=== PATIENT | female | born 2000 | race African-American/Black ===

== ENCOUNTER 2018-12-12 14:40 | Emergency (ER) | payer OTHER ==
[~2018-12-12] VITALS: Ht 165.1 cm; Wt 55.3 kg
[2018-12-12 14:45] VITALS: BP 113/50
--- NOTE | 2018-12-12 15:07 | PHYS DOC ---
Past History Past Medical History: No Pertinent History Past Surgical History: No Surgical History Alcohol Use: None Drug Use: None Adult General Chief Complaint Chief Complaint: SYNCOPE HPI HPI 18-year-old female presents via EMS after syncopal episode. The patient is a college student. She donated blood today and walked briskly to class. Just as she had to class building, she began to feel dizzy and lightheaded. She sat down and then had a syncopal episode. She was told that she was unconscious for about a minute. She had no loss of bowel or bladder. When she woke up she has a hea dache. She also had a right field visual deficits. This persisted for a couple minutes but has resolved at this time. She continues to have a headache and a mild lightheaded feeling. She denies fever or chills. She did eat breakfast today. She has not had much water to drink today. She has never donated blood until today. She has a history of at least 2 previous syncopal episodes. Any workups done at that time were negative. Review of Systems Review of Systems Constitutional: Denies fever or chills [] Eyes: Denies current change in visual acuity, redness, or eye pain [] HENT: Denies nasal congestion or sore throat [] Respiratory: Denies cough or shortness of breath [] Cardiovascular: No additional information not addressed in HPI [] GI: Denies abdominal pain, nausea, vomiting, bloody stools or diarrhea [] : Denies dysuria or hematuria [] Musculoskeletal: Denies back pain or joint pain [] Integument: Denies rash or skin lesions [] Neurologic: Headache, dizziness. Denies focal weakness or sensory changes [] Endocrine: Denies polyuria or polydipsia [] All other systems were reviewed and found to be within normal limits, except as documented in this note. Allergies Allergies Allergies Coded Allergies Type Severity Reaction Last Updated Verified No Known Drug Allergies 12/12/18 No Physical Exam Physical Exam Constitutional: Well developed, well nourished, no acute distress, non-toxic appearance. [] HENT: Normocephalic, atraumatic, bilateral external ears normal, oropharynx moist, no oral exudates, nose normal. [] Eyes: PERRLA, EOMI, conjunctiva normal, no discharge. [] Neck: Normal range of motion, no tenderness, supple, no stridor. [] Cardiovascular:Heart rate regular rhythm, no murmur [] Lungs & Thorax: Bilateral breath sounds clear to auscultation [] Abdomen: Bowel sounds normal, soft, no tenderness, no masses, no pulsatile masses. [] Skin: Warm, dry, no erythema, no rash. [] Back: No tenderness, no CVA tenderness. [] Extremities: No tenderness, no cyanosis, no clubbing, ROM intact, no edema. [] Neurologic: Alert and oriented X 3, normal motor function, normal sensory function, no focal deficits noted. [] Psychologic: Affect normal, judgement normal, mood normal. [] Current Patient Data Vital Signs Vital Signs Date Time Temp Pulse Resp B/P (MAP) Pulse Ox O2 Delivery O2 Flow Rate FiO2 12/12/18 14:45 98.9 87 18 100 Room Air EKG EKG [] Radiology/Procedures Radiology/Procedures [] Impressions: PQRS Compliance Statement: One or more of the following individualized dose reduction techniques were utilized for this examination: 1. Automated exposure control 2. Adjustment of the mA and/or kV according to patient size 3. Use of iterative reconstruction technique CT head without contrast 12/12/2018 3:02 PM INDICATION: Syncope COMPARISON: None available TECHNIQUE: Multiple axial CT images of the head were obtained from skull base through the vertex without intravenous contrast. FINDINGS: Head: Ventricles, sulci and basal cisterns are within normal limits. There is no hydrocephalus. Viveros-white matter differentiation is normal. There is no acute intracranial hemorrhage. There is no mass, mass effect or midline shift. Posterior fossa is normal in appearance. Visualized portions of the orbits are normal. Paranasal sinuses are well aerated. Mastoid air cells are well aerated. Scalp and calvaria are normal. IMPRESSION: No acute intracranial hemorrhage. Electronically signed by: Diya Chavez MD (12/12/2018 3:26 PM) [id number] DICTATED AND SIGNED BY: DIYA CHAVEZ MD DATE: 12/12/18 1526 CC: KAYCEE PENG DO; FELICIA CHAIDEZ N ~ CHEST PA LATERAL History: Syncope Comparison: None. Findings: No consolidation or pleural effusion. Normal heart size. Impression: 1. No acute cardiopulmonary process. Electronically signed by: Henrik Salcido DO (12/12/2018 3:32 PM) [id number] DICTATED AND SIGNED BY: HENRIK SALCIDO DO DATE: 12/12/18 1532 CC: KAYCEE PENG DO; FELICIA CHAIDEZ ~ Course & Med Decision Making Course & Med Decision Making Pertinent Labs and Imaging studies reviewed. (See chart for details) The patient's labs are unremarkable. Her urinalysis is negative for infection. Her head CT is negative for acute findings. Chest x-rays unremarkable. The pat ient likely had a vasovagal syncope. She gave blood today. She was likely a bit dehydrated from not drinking any foods today. She has had syncopal episodes in the past were explained. All for workups of the negative. This seems to be the most likely answer. I have advised her to stay well-hydrated to help avoid these symptoms. She is stable for discharge at this time. [] Dragon Disclaimer Dragon Disclaimer This electronic medical record was generated, in whole or in part, using a voice recognition dictation system. Departure Departure: Impression: Primary Impression: Vasovagal syncope Disposition: HOME, SELF-CARE Condition: STABLE Referrals: PCP,NO (PCP) Patient Instructions: Syncope, [id number] KAYCEE PENG DO Dec 12, 2018 15:07
--- NOTE | 2018-12-12 15:29 | RAD ---
RS Compliance Statement: One or more of the following individualized dose reduction techniques were utilized for this examination: 1. Automated exposure control 2. Adjustment of the mA and/or kV according to patient size 3. Use of iterative reconstruction technique CT head without contrast 12/12/2018 3:02 PM INDICATION: Syncope COMPARISON: None available TECHNIQUE: Multiple axial CT images of the head were obtained from skull base through the vertex without intravenous contrast. FINDINGS: Head: Ventricles, sulci and basal cisterns are within normal limits. There is no hydrocephalus. Viveros-white matter differentiation is normal. There is no acute intracranial hemorrhage. There is no mass, mass effect or midline shift. Posterior fossa is normal in appearance. Visualized portions of the orbits are normal. Paranasal sinuses are well aerated. Mastoid air cells are well aerated. Scalp and calvaria are normal. IMPRESSION: No acute intracranial hemorrhage. Electronically signed by: Gayatri Hunter MD (12/12/2018 3:26 PM) [id number]
[2018-12-12 15:32] LABS: BASO % 1 % (0-3); EOS # 0.1 x10^3/uL (0.0-0.7); EOS % 1 % (0-3); HEMATOCRIT 36.2 % (36.0-47.0); LYMPH % 15 % (24-48); MEAN CORPUSCULAR HEMOGLOBIN 31 pg (25-35); MEAN CORPUSCULAR HGB CONC 33 g/dL (31-37); MEAN CORPUSCULAR VOLUME 92 fL (79-100); MONO # 0.6 x10^3/uL (0.0-1.1); MONO % 9 % (0-9); NEUT # 4.7 x10^3uL (1.8-7.7); NEUT % 74 % (31-73); PLATELET COUNT 355 x10^3/uL (140-400); RED BLOOD COUNT 3.92 x10^6/uL (3.50-5.40); RED CELL DISTRIBUTION WIDTH 13.9 % (11.5-14.5); WHITE BLOOD COUNT 6.3 x10^3/uL (4.0-11.0)
--- NOTE | 2018-12-12 15:35 | RAD ---
CHEST PA LATERAL History: Syncope Comparison: None. Findings: No consolidation or pleural effusion. Normal heart size. Impression: 1. No acute cardiopulmonary process. Electronically signed by: Henrik Salcido DO (12/12/2018 3:32 PM) [facility]
--- NOTE | 2018-12-12 15:35 | EKG ---
[address] [id number] Test Date: 2018-12-12 Test Time: 15:32:10 Pat Name: JOSE FRIAS Department: Room: Gender: F [employer] Project [employer]: IVAN : 2000 Requested By: KAYCEE PENG Order Number: [id number] Reading MD: Measurements Intervals [place] Rate: 85 P: -31 WA: 140 QRS: 77 QRSD: 70 T: 62 QT: 338 QTc: 407 Interpretive Statements SINUS RHYTHM NO SPECIFIC ECG ABNORMALITIES RI6.01 No previous ECG available for comparison
[2018-12-12 15:44] LABS: CLARITY,URINE HAZY; COLOR,URINE YELLOW
[2018-12-12 15:45] LABS: BACTERIA,URINE MOD /HPF (0-FEW); BILIRUBIN,URINE NEG (NEG); GLUCOSE,URINE NEG (NEG); NITRITE,URINE NEG (NEG); RBC,URINE 0 /HPF (0-2); SQUAMOUS EPITHELIAL CELL,UR OCC /LPF; UROBILINOGEN,URINE 0.2 mg/dL (0.2 mg/dL)
[2018-12-12 15:46] LABS: ALBUMIN 3.3 g/dL (3.4-5.0); CALCIUM 8.5 mg/dL (8.5-10.1); CREATININE 0.7 mg/dL (0.6-1.0); GFR 129.1; POTASSIUM 3.8 mmol/L (3.5-5.1); TOTAL BILIRUBIN 0.2 mg/dL (0.2-1.0); TOTAL PROTEIN 6.7 g/dL (6.4-8.2)
[2018-12-12] MEDS ORDERED: diphenhydrAMINE HCL 25 MG CAPSULE PO ONE (16:06)
[2018-12-12] MEDS ORDERED: KETOROLAC 15 MG/ML VIAL. ONE (16:06)
[2018-12-12] MEDS ORDERED: METOCLOPRAMIDE HCL 10 MG/2 ML VIAL. IVP ONE (16:15)
[2018-12-12] MEDS ORDERED: IV NORMAL SALINE 500ML 500 ML IV ONE (16:15)
[2018-12-12] MEDS ORDERED: diphenhydrAMINE 50 MG/ML VIAL IVP ONE (16:15)
[2018-12-12] MEDS ORDERED: KETOROLAC 15 MG/ML VIAL. IV ONE (16:15)
== END 2018-12-12 16:01 | disposition home or self-care (01) ==
LOC: ER 14:40
DX: R55 Syncope and collapse (principal); R51 Headache
CPT/HCPCS: 36415; 70450; 71046; 80053; 81001; 85025; 87086; 93005; 99285